=== PATIENT | male | born 1985 | race Caucasian/White ===

== ENCOUNTER 2016-07-28 09:17 | Emergency (ER) | payer MEDICAID ==
[2016-07-28 09:30] VITALS: BP 181/108; PULSE 68; RESP 18; TEMP 98.9
--- NOTE | 2016-07-28 09:56 | ED ---
General Adult HPI - General Chief complaint: Fall Stated complaint: fell/head injury Time Seen by Provider: 07/28/16 09:32 Source: patient, RN notes reviewed Mode of arrival: ambulatory Limitations: no limitations - History of Present Illness Initial comments: Patient 31-year-old male who presents emergency room today with a chief complaint of a laceration located to the right side of the forehead. He does admit that he slipped on the ice falling hitting his head in his driveway causes laceration. He states tetanus up-to-date. He states there is no loss conscious. He is not on any blood thinners. He denies any headache. He denies any other complaints symptoms. Patient denies any recent fever, chills, shortness of breath, chest pain, back pain, abdominal pain, nausea or vomiting, numbness or tingling, dysuria or hematuria, constipation or diarrhea, headaches or visual changes, or any other complaints. - Related Data Home Medications Medication Instructions Recorded Confirmed No Known Home Medications [No 07/28/16 07/28/16 Known Home Medications] Allergies Allergy/AdvReac Type Severity Reaction Status Date / Time No Known Allergies Allergy Verified 07/28/16 09:30 Review of Systems ROS Statement: Those systems with pertinent positive or pertinent negative responses have been documented in the HPI. ROS Other: All systems not noted in ROS Statement are negative. Past Medical History Past Medical History: No Reported History History of Any Multi-Drug Resistant Organisms: None Reported Past Surgical History: No Surgical Hx Reported Past Psychological History: No Psychological Hx Reported Smoking Status: Never smoker Past Alcohol Use History: Rare Past Drug Use History: None Reported General Exam - General Exam Comments Initial Comments: General: The patient is awake and alert, in no distress, and does not appear acutely ill. Eye: Pupils are equal, round and reactive to light, extra-ocular movements are intact. No nystagmus. There is normal conjunctiva bilaterally. No signs of icterus. Ears, nose, mouth and throat: There are moist mucous membranes and no oral lesions. No tenderness around the nasal bridge. Small abrasion locally to this area. No tenderness of the inferior or superior orbital bones bilaterally. Neck: The neck is supple, there is no tenderness or JVD. Cardiovascular: There is a regular rate and rhythm. No murmur, rub or gallop is appreciated. Respiratory: Lungs are clear to auscultation, respirations are non-labored, breath sounds are equal. No wheezes, stridor, rales, or rhonchi. Musculoskeletal: Normal ROM, no tenderness. Strength 5/5. Sensation intact. Pulses equal bilaterally 2+. Neurological: A&O x 3. CN II-XII intact, There are no obvious motor or sensory deficits. Coordination appears grossly intact. Speech is normal. Skin: 2.5 cm linear laceration running on a angle to the right side of forehead. Psychiatric: Cooperative, appropriate mood & affect, normal judgment. Limitations: no limitations Course Vital Signs 07/28/16 09:27 Temperature 98.9 F Pulse Rate 68 Respiratory 18 Rate Blood Pressure 181/108 O2 Sat by Pulse 97 Oximetry Procedures - Procedures Initial comment: 2.5 cm linear laceration right angle to the right side of the forehead. The skin was anesthetized with 1% lidocaine. The laceration was then cleansed with Betadine and irrigated with normal saline. The wound was inspected, and there was no evidence of injury to deep structures. No foreign body was noted in the wound. A total of 8 skin sutures were placed utilizing 6-0 nylon. Medical Decision Making - Medical Decision Making Patient advised to return to emergency room if any symptoms increase or worsen or for any other concerns. Advised return in 5 days to have sutures removed. Advised return sooner for any signs of infection. Patient blood pressure mildly elevated here the emergency room. Advised to follow-up with family doctor have BP rechecked. Disposition Clinical Impression: Fall, Laceration Disposition: HOME SELF-CARE Condition: Good Instructions: Laceration (ED) Additional Instructions: Please return to the emergency room in 5 days to have sutures removed. Please watch for any signs of infection which may include increased pain, swelling, redness, fever or chills. Please return to emergency room for any signs of infection do occur. Please use clean soap and water over the area to prevent scabbing over your stitches. Please leave wound covered for the first 24 hours and then leave wound open to air. Please return to the emergency room for any other concerns. Time of Disposition: 09:56
== END 2016-07-28 10:17 | disposition home or self-care (01) ==
LOC: EC 09:17
DX: S01.81XA Laceration without foreign body of other part of head, initial encounter (principal); W00.0XXA Fall on same level due to ice and snow, initial encounter; Y92.096 Garden or yard of other non-institutional residence as the place of occurrence of the external cause; R03.0 Elevated blood-pressure reading, without diagnosis of hypertension
CPT/HCPCS: 12011; 99282

== ENCOUNTER → 2016-07-30 | Outpatient (CLI) | payer MEDICAID ==
--- NOTE | 2016-07-31 08:23 | XR ---
Left knee HISTORY: Left knee pain, trauma and swelling 3 views of the left knee Bone mineralization, joint spaces and alignment are maintained IMPRESSION: No fracture or dislocation is evident.
== END | disposition home or self-care (01) ==
LOC: RADXRYALE 10:17
PROVIDERS: ATTEND Physician Assistant Medical
DX: M25.562 Pain in left knee (principal); M25.462 Effusion, left knee; W00.9XXA Unspecified fall due to ice and snow, initial encounter